=== PATIENT | female | born 1990 | race Caucasian/White ===

== ENCOUNTER 2020-07-28 07:30 | Inpatient (IN) ==
[2020-07-28] MEDS ORDERED: OXYTOCIN 30 UNITS/500 ML BAG IV PRN (09:28)
[2020-07-28] MEDS ORDERED: DINOPROSTONE 10 MG INSERT PV ONE (09:38)
[2020-07-28 09:57] LABS: Hematocrit (blood only) 30.6 % (37-47); Hemoglobin 9.9 g/dL (12.0-16.0); Mean Corpuscular Volume 86.7 fL (80-100); Mean Platelet Volume 10.6 fL (7.4-10.4); Platelet Count 153 K/uL (130-400); RDW Coefficient of Variation 13.3 % (11.5-14.5); RDW Standard Deviation 41.9 fL (36.4-46.3); Red Blood Count 3.53 M/uL (4.2-5.4); White Blood Count 4.67 K/uL (4.8-10.8)
[2020-07-28 10:09] LABS: Mean Corpuscular Hgb Conc 32.4 g/dL (32-36)
--- NOTE | 2020-07-28 10:20 | Obstetrical Progress Note ---
Date of Service July 28, 2020 Admit Note 29 F P0000 at 40 weeks admitted for induction of labor for GDM diet controlled. GBS is negative. Covid is negative. FHT Cat 1 with no contractions. Cervix is 1/50/-3/vertex/posterior. EFW 7-7.5 lbs. Cervidil 10 mg placed vaginally for ripening. Assessment & Plan Admission and Anticipated Discharge Date Admission Date: July 28, 2020 Results & Data ([facility]) Vital Signs (Past 12 Hours) Vital Signs Temp Pulse Resp BP 07/28/20 09:46 18 07/28/20 09:00 18 07/28/20 08:11 36.7 C 07/28/20 08:00 18 07/28/20 07:46 62 117/75 07/28/20 07:38 18
[2020-07-28] MEDS: LACTATED RINGER'S 1,000 ML IV PRN ×3 (16:01→23:45)
[2020-07-28] MEDS ORDERED: BUPIVACAINE 0.25% 30 ML VIAL ONE (17:46)
[2020-07-28] MEDS ORDERED: fentaNYL citrate 100 MCG/2 ML VIAL ONE (17:46)
[2020-07-28] MEDS ORDERED: ePHEDrine sulfate 50 MG/ML AMP ONE (17:46)
[2020-07-28] MEDS ORDERED: fentaNYL 2MCG/ML ROPIV 1.25MG/ML 100 ML BAG EPI ONE (17:47)
--- NOTE | 2020-07-28 17:53 | Obstetrical Progress Note ---
Date of Service July 28, 2020 Assessment & Plan Admission and Anticipated Discharge Date Admission Date: July 28, 2020 Physical Exam Genitourinary: OB Exam Abdomen: + vertex and + regular contractions Manual OB Exam: + cervical dilation 4 cm, + cervical effacement 80% and + station -2 OB Exam Monitor Tracing: + external FHT monitor used, + category I and + normal FHT variability patient requesting epidural Results & Data ([facility]) Vital Signs (Past 12 Hours) Vital Signs Temp Pulse Resp BP 07/28/20 17:30 18 07/28/20 16:51 58 L 138/63 07/28/20 15:56 37.1 C 18 07/28/20 15:27 62 116/62 07/28/20 15:26 18 07/28/20 14:41 18 07/28/20 13:56 61 127/75 07/28/20 13:55 18 07/28/20 13:23 18 07/28/20 12:54 60 121/73 07/28/20 12:52 18 07/28/20 11:53 18 07/28/20 11:11 73 117/65 07/28/20 10:57 68 121/77 07/28/20 10:42 81 113/75 07/28/20 10:26 74 126/80 07/28/20 10:00 18 07/28/20 09:46 18 07/28/20 09:00 18 07/28/20 08:11 36.7 C 07/28/20 08:00 18 07/28/20 07:50 36.7 C 07/28/20 07:46 62 117/75 07/28/20 07:38 18
--- NOTE | 2020-07-28 18:27 | Anesthesiology Consultation ---
Date of Service July 28, 2020 Assessment & Plan Chart Review Chart Review: Acceptable Risk for Labor Epidural Consults Requested none History Height/Weight Height: 5 ft 4 in Weight: 65.317 kg Allergies Allergy/AdvReac Type Severity Reaction Status Date / Time No Known Allergies Allergy Unverified 07/28/20 08:03 Medications Home Medications Medication Instructions Recorded Confirmed Last Taken prenat.vits,sallei,vvt-yili-vxjfr 1 tab PO DAILY 07/28/20 07/28/20 07/28/20 [ #2] valacyclovir [Valtrex] 500 mg PO DAILY 07/28/20 07/28/20 07/28/20 06:00 Active Medications Generic Name Dose Route Start Last Admin Trade Name Freq PRN Reason Stop Dose Admin Lactated Ringer's 1,000 mls @ 125 mls/hr 07/28/20 09:28 07/28/20 18:04 Lr IV 07/30/20 09:27 500 mls/hr .Q8H PRN Administration L&D Protocol Protocol Past Medical History Medical History Genital herpes Gestational diabetes Past Family History Family History (Updated 07/28/20 @ 07:58 by Katy Dixon) Father Prostate cancer Past Surgical History Surgical History No history of previous surgery Social History Smoking Status: Never smoker Do You Dip or Chew Tobacco: No Hx Alcohol Use: No Hx Substance Use: No Physical Exam Vital Signs Last Vital Signs Temp 37.1 C 07/28/20 15:56 Pulse 66 07/28/20 18:25 Resp 18 07/28/20 18:00 BP 111/64 07/28/20 18:23 Pulse Ox 100 07/28/20 18:25 Testing Laboratory Results 07/28/20 09:44 07/28/20 09:46 POC Glucose 127 H
[2020-07-28] MEDS ORDERED: ePHEDrine sulfate 50 MG/ML AMP IV PRN (18:29)
[2020-07-28] MEDS ORDERED: DiphenhydrAMINE HCL 50 MG/ML VIAL IV PRN (18:29)
[2020-07-28] MEDS ORDERED: NALOXONE HCL 1 MG in SODIUM CHLORIDE 0.9% 1000ML 1,000 ML IV PRN (18:29)
[2020-07-28] MEDS ORDERED: NALOXONE HCL 0.4 MG/1 ML VIAL/CARP IV PRN (18:29)
--- NOTE | 2020-07-28 19:36 | Obstetrical Progress Note ---
Date of Service July 28, 2020 Assessment & Plan Admission and Anticipated Discharge Date Admission Date: July 28, 2020 Physical Exam Genitourinary: OB Exam Abdomen: + regular contractions Manual OB Exam: + cervical dilation 4 cm, + cervical effacement 80% and + amniotic fluid clear OB Exam Monitor Tracing: + external FHT monitor used, + category I and + normal FHT variability AROM with Amni-hook clear fluid Results & Data ([facility]) Vital Signs (Past 12 Hours) Vital Signs Temp Pulse Resp BP Pulse Ox Pulse Ox 07/28/20 19:34 65 126/73 07/28/20 19:30 62 100 07/28/20 19:25 70 100 07/28/20 19:20 85 99 07/28/20 19:19 37.1 C 18 07/28/20 19:15 65 100 07/28/20 19:10 61 100 07/28/20 19:07 79 105/64 07/28/20 19:05 74 100 07/28/20 19:00 61 99 07/28/20 18:57 57 L 112/64 07/28/20 18:55 74 99 07/28/20 18:50 55 L 99 07/28/20 18:48 53 L 111/63 07/28/20 18:45 58 L 99 07/28/20 18:40 62 100 07/28/20 18:39 61 110/60 07/28/20 18:35 65 100 07/28/20 18:32 100 07/28/20 18:30 62 18 100 07/28/20 18:26 60 112/61 07/28/20 18:25 66 100 07/28/20 18:23 62 111/64 07/28/20 18:20 62 110/58 L 100 07/28/20 18:17 67 111/62 07/28/20 18:15 62 116/63 100 07/28/20 18:11 67 133/79 07/28/20 18:10 71 100 07/28/20 18:09 70 124/79 07/28/20 18:06 80 136/78 07/28/20 18:05 73 100 07/28/20 18:03 75 153/78 H 07/28/20 18:00 80 18 100 100 07/28/20 17:55 61 100 07/28/20 17:30 18 07/28/20 16:51 58 L 138/63 07/28/20 15:56 37.1 C 18 07/28/20 15:27 62 116/62 07/28/20 15:26 18 07/28/20 14:41 18 07/28/20 13:56 61 127/75 07/28/20 13:55 18 07/28/20 13:23 18 07/28/20 12:54 60 121/73 07/28/20 12:52 18 07/28/20 11:53 18 07/28/20 11:11 73 117/65 07/28/20 10:57 68 121/77 07/28/20 10:42 81 113/75 07/28/20 10:26 74 126/80 07/28/20 10:00 18 07/28/20 09:46 18 07/28/20 09:00 18 07/28/20 08:11 36.7 C 07/28/20 08:00 18 07/28/20 07:50 36.7 C 07/28/20 07:46 62 117/75 07/28/20 07:38 18
--- NOTE | 2020-07-28 23:01 | Obstetrical Progress Note ---
Date of Service July 28, 2020 Assessment & Plan Admission and Anticipated Discharge Date Admission Date: July 28, 2020 Physical Exam Genitourinary: Manual OB Exam: + cervical dilation 7 cm, + cervical effacement 90%, + station -1 and + amniotic fluid clear OB Exam Monitor Tracing: + external FHT monitor used, + external uterine monitor used, + category I and + normal FHT variability Results & Data ([facility]) Vital Signs (Past 12 Hours) Vital Signs Temp Pulse Resp BP Pulse Ox Pulse Ox 07/28/20 22:55 62 99 07/28/20 22:50 60 100 07/28/20 22:49 62 118/76 07/28/20 22:45 80 99 07/28/20 22:40 65 98 07/28/20 22:35 54 L 98 07/28/20 22:30 37.1 C 68 18 99 07/28/20 22:25 61 97 07/28/20 22:20 54 L 98 07/28/20 22:19 57 L 129/64 07/28/20 22:15 67 98 07/28/20 22:10 55 L 97 07/28/20 22:05 53 L 98 07/28/20 22:04 51 L 134/74 07/28/20 22:00 63 18 99 07/28/20 21:55 55 L 98 07/28/20 21:50 71 98 07/28/20 21:49 65 109/70 07/28/20 21:45 55 L 98 07/28/20 21:40 49 L 98 07/28/20 21:35 65 98 07/28/20 21:34 60 126/85 07/28/20 21:30 37.1 C 54 L 18 99 07/28/20 21:25 57 L 99 07/28/20 21:20 66 99 07/28/20 21:18 60 122/74 07/28/20 21:15 56 L 98 07/28/20 21:10 65 98 07/28/20 21:05 68 99 07/28/20 21:04 63 120/76 07/28/20 21:00 52 L 18 97 07/28/20 20:55 53 L 98 07/28/20 20:50 53 L 98 07/28/20 20:48 53 L 108/61 07/28/20 20:45 54 L 98 07/28/20 20:40 77 99 07/28/20 20:35 75 103/59 L 98 07/28/20 20:30 62 18 98 07/28/20 20:25 59 L 99 07/28/20 20:20 78 98 07/28/20 20:19 60 127/57 L 07/28/20 20:15 66 99 07/28/20 20:10 62 98 07/28/20 20:05 67 98 07/28/20 20:04 64 111/65 07/28/20 20:00 65 18 98 07/28/20 19:55 73 99 07/28/20 19:50 61 98 07/28/20 19:48 70 118/65 07/28/20 19:45 59 L 100 07/28/20 19:40 59 L 100 07/28/20 19:35 80 100 07/28/20 19:34 65 126/73 07/28/20 19:30 62 100 07/28/20 19:25 70 100 07/28/20 19:20 85 99 07/28/20 19:19 37.1 C 18 07/28/20 19:15 37.1 C 65 100 07/28/20 19:10 61 100 07/28/20 19:07 79 105/64 07/28/20 19:05 74 100 07/28/20 19:00 61 99 07/28/20 18:57 57 L 112/64 07/28/20 18:55 74 99 07/28/20 18:50 55 L 99 07/28/20 18:48 53 L 111/63 07/28/20 18:45 58 L 99 07/28/20 18:40 62 100 07/28/20 18:39 61 110/60 07/28/20 18:35 65 100 07/28/20 18:32 100 07/28/20 18:30 62 18 100 07/28/20 18:26 60 112/61 07/28/20 18:25 66 100 07/28/20 18:23 62 111/64 07/28/20 18:20 62 110/58 L 100 07/28/20 18:17 67 111/62 07/28/20 18:15 62 116/63 100 07/28/20 18:11 67 133/79 07/28/20 18:10 71 100 07/28/20 18:09 70 124/79 07/28/20 18:06 80 136/78 07/28/20 18:05 73 100 07/28/20 18:03 75 153/78 H 07/28/20 18:00 80 18 100 100 07/28/20 17:55 61 100 07/28/20 17:30 18 07/28/20 16:51 58 L 138/63 07/28/20 15:56 37.1 C 18 07/28/20 15:27 62 116/62 07/28/20 15:26 18 07/28/20 14:41 18 07/28/20 13:56 61 127/75 07/28/20 13:55 18 07/28/20 13:23 18 07/28/20 12:54 60 121/73 07/28/20 12:52 18 07/28/20 11:53 18 07/28/20 11:11 73 117/65
[2020-07-28] MEDS: fentaNYL 2MCG/ML ROPIV 1.25MG/ML 100 ML BAG EPI PRN (23:47)
[2020-07-29] MEDS: fentaNYL 2MCG/ML ROPIV 1.25MG/ML 100 ML BAG EPI PRN (02:22)
[2020-07-29] MEDS ORDERED: Nursing to Pharmacy Communication SCH (02:44)
--- NOTE | 2020-07-29 06:46 | Obstetrical Progress Note ---
Date of Service July 29, 2020 Assessment & Plan Admission and Anticipated Discharge Date Admission Date: July 28, 2020 Physical Exam Genitourinary: OB Exam Abdomen: + regular contractions Manual OB Exam: + cervical dilation 10 cm, + cervical effacement, + station + 1 and + amniotic fluid OB Exam Monitor Tracing: + external FHT monitor used, + external uterine monitor used and + category I will start to push Results & Data ([facility]) Vital Signs (Past 12 Hours) Vital Signs Temp Pulse Resp BP Pulse Ox 07/29/20 06:40 61 98 07/29/20 06:35 62 98 07/29/20 06:34 62 104/59 L 07/29/20 06:30 73 18 98 07/29/20 06:25 64 98 07/29/20 06:20 59 L 99 07/29/20 06:18 61 105/56 L 07/29/20 06:15 58 L 99 07/29/20 06:10 59 L 100 07/29/20 06:05 61 100 07/29/20 06:03 62 103/60 07/29/20 06:00 60 18 100 07/29/20 05:55 68 99 07/29/20 05:50 73 97 07/29/20 05:49 61 112/73 07/29/20 05:45 86 97 07/29/20 05:40 70 98 07/29/20 05:35 74 98 07/29/20 05:34 72 114/75 07/29/20 05:30 37.1 C 65 18 98 07/29/20 05:25 74 98 07/29/20 05:20 62 98 07/29/20 05:18 73 112/73 07/29/20 05:15 63 98 07/29/20 05:10 69 97 07/29/20 05:05 68 98 07/29/20 05:04 69 111/71 07/29/20 05:00 70 18 98 07/29/20 04:55 62 98 07/29/20 04:50 64 97 07/29/20 04:49 61 120/77 07/29/20 04:45 74 97 07/29/20 04:40 69 98 07/29/20 04:35 68 98 07/29/20 04:34 63 110/68 07/29/20 04:30 70 18 97 07/29/20 04:25 64 98 07/29/20 04:20 63 98 07/29/20 04:19 58 L 109/68 07/29/20 04:15 62 98 07/29/20 04:10 62 98 07/29/20 04:05 63 98 07/29/20 04:04 57 L 108/69 07/29/20 04:00 66 18 98 07/29/20 03:55 61 99 07/29/20 03:52 37.1 C 07/29/20 03:50 69 95 07/29/20 03:49 87 122/83 07/29/20 03:48 78 91 07/29/20 03:45 76 100 07/29/20 03:40 97 H 100 07/29/20 03:35 67 98 07/29/20 03:34 61 98/54 L 07/29/20 03:30 68 98 07/29/20 03:25 61 98 07/29/20 03:20 73 98 07/29/20 03:19 59 L 101/59 L 07/29/20 03:15 56 L 100 07/29/20 03:10 51 L 99 07/29/20 03:05 53 L 101/56 L 99 07/29/20 03:00 51 L 99 07/29/20 02:55 53 L 100 07/29/20 02:51 51 L 109/56 L 07/29/20 02:50 51 L 100 07/29/20 02:45 64 100 07/29/20 02:40 70 100 07/29/20 02:35 63 100 07/29/20 02:34 56 L 111/61 07/29/20 02:30 64 18 100 07/29/20 02:25 71 100 07/29/20 02:20 82 100 07/29/20 02:19 88 124/80 07/29/20 02:15 86 99 07/29/20 02:10 70 98 07/29/20 02:05 58 L 113/69 97 07/29/20 02:00 37.1 C 59 L 18 98 07/29/20 01:55 61 97 07/29/20 01:50 60 98 07/29/20 01:48 59 L 124/75 07/29/20 01:45 61 97 07/29/20 01:40 61 98 07/29/20 01:35 54 L 98 07/29/20 01:33 62 116/73 07/29/20 01:30 58 L 18 97 07/29/20 01:25 69 98 07/29/20 01:20 66 98 07/29/20 01:19 55 L 111/70 07/29/20 01:15 51 L 97 07/29/20 01:10 54 L 97 07/29/20 01:05 54 L 97 07/29/20 01:04 52 L 113/68 07/29/20 01:00 58 L 18 98 07/29/20 00:55 52 L 98 07/29/20 00:50 55 L 98 07/29/20 00:49 51 L 115/70 07/29/20 00:45 71 100 07/29/20 00:40 73 100 07/29/20 00:35 66 116/75 100 07/29/20 00:30 37.1 C 49 L 18 98 07/29/20 00:25 61 98 07/29/20 00:20 55 L 99 07/29/20 00:19 49 L 118/67 07/29/20 00:15 56 L 99 07/29/20 00:10 50 L 98 07/29/20 00:05 55 L 98 07/29/20 00:04 53 L 110/60 07/29/20 00:00 54 L 18 98 07/28/20 23:55 52 L 99 07/28/20 23:50 61 127/78 100 07/28/20 23:45 62 98 07/28/20 23:40 55 L 97 07/28/20 23:35 54 L 98 07/28/20 23:34 55 L 123/75 07/28/20 23:30 37.1 C 63 18 97 07/28/20 23:25 53 L 97 07/28/20 23:20 54 L 98 07/28/20 23:18 52 L 114/64 07/28/20 23:15 63 98 07/28/20 23:10 51 L 98 07/28/20 23:05 71 98 07/28/20 23:03 55 L 118/63 07/28/20 23:00 56 L 18 99 07/28/20 22:55 62 99 07/28/20 22:50 60 100 07/28/20 22:49 62 118/76 07/28/20 22:45 80 99 07/28/20 22:40 65 98 07/28/20 22:35 54 L 98 07/28/20 22:30 37.1 C 68 18 99 07/28/20 22:25 61 97 07/28/20 22:20 54 L 98 07/28/20 22:19 57 L 129/64 07/28/20 22:15 67 98 07/28/20 22:10 55 L 97 07/28/20 22:05 53 L 98 07/28/20 22:04 51 L 134/74 07/28/20 22:00 63 18 99 07/28/20 21:55 55 L 98 07/28/20 21:50 71 98 07/28/20 21:49 65 109/70 07/28/20 21:45 55 L 98 07/28/20 21:40 49 L 98 07/28/20 21:35 65 98 07/28/20 21:34 60 126/85 07/28/20 21:30 37.1 C 54 L 18 99 07/28/20 21:25 57 L 99 07/28/20 21:20 66 99 07/28/20 21:18 60 122/74 07/28/20 21:15 56 L 98 07/28/20 21:10 65 98 07/28/20 21:05 68 99 07/28/20 21:04 63 120/76 07/28/20 21:00 52 L 18 97 07/28/20 20:55 53 L 98 07/28/20 20:50 53 L 98 07/28/20 20:48 53 L 108/61 07/28/20 20:45 54 L 98 07/28/20 20:40 77 99 07/28/20 20:35 75 103/59 L 98 07/28/20 20:30 62 18 98 07/28/20 20:25 59 L 99 07/28/20 20:20 78 98 07/28/20 20:19 60 127/57 L 07/28/20 20:15 66 99 07/28/20 20:10 62 98 07/28/20 20:05 67 98 07/28/20 20:04 64 111/65 07/28/20 20:00 65 18 98 10/06/20 19:55 73 99 07/28/20 19:50 61 98 07/28/20 19:48 70 118/65 07/28/20 19:45 59 L 100 07/28/20 19:40 59 L 100 07/28/20 19:35 80 100 07/28/20 19:34 65 126/73 07/28/20 19:30 62 100 07/28/20 19:25 70 100 07/28/20 19:20 85 99 07/28/20 19:19 37.1 C 18 07/28/20 19:15 37.1 C 65 100 07/28/20 19:10 61 100 07/28/20 19:07 79 105/64 07/28/20 19:05 74 100 07/28/20 19:00 61 99 07/28/20 18:57 57 L 112/64 07/28/20 18:55 74 99 07/28/20 18:50 55 L 99 07/28/20 18:48 53 L 111/63
[2020-07-29] MEDS: LACTATED RINGER'S 1,000 ML IV PRN (07:51)
--- NOTE | 2020-07-29 09:46 | Delivery Summary ---
Vaginal Delivery Summary Date of Service July 29, 2020 Vaginal Delivery Summary Delivery Note live male over intact perineum RENE with Apgars 8/9 weight pending. Cord blood obtained followed by spontaneous delivery of intact placenta. No tears. EBL 200 ml. Final sponge and instrument count are correct. Mom and baby stable.
[2020-07-29] MEDS ORDERED: OXYTOCIN 30 UNITS/500 ML BAG IV PRN ×2 (09:47→10:18)
[2020-07-29] MEDS ORDERED: HYDROCORTISONE ACETATE 25 MG SUPP PR PRN ×2 (09:47→10:18)
[2020-07-29] MEDS ORDERED: bisacodyL 10 MG SUPP PR PRN ×2 (09:47→10:18)
[2020-07-29] MEDS ORDERED: ACETAMINOPHEN 325 MG TAB PO PRN ×2 (09:47→10:18)
[2020-07-29] MEDS ORDERED: BENZOCAINE 20% AER SPR 82.5 GM CAN EXT PRN ×2 (09:47→10:18)
[2020-07-29] MEDS ORDERED: SUPERCREAM 0.870% 15 GM JAR EXT PRN ×2 (09:47→10:18)
[2020-07-29] MEDS ORDERED: DIPHTHERIA/TETANUS/PERTUSSIS 0.5 ML SYR/VIAL IM ONE (10:18)
[2020-07-29] MEDS ORDERED: LACTATED RINGER'S 1,000 ML IV SCH (10:18)
[2020-07-29] MEDS ORDERED: VARICELLA VIRUS VACCINE LIVE VIAL SQ ONE (10:18)
[2020-07-29] MEDS ORDERED: IBUPROFEN 600 MG TAB PO PRN (10:18)
--- NOTE | 2020-07-29 11:46 | Anesthesia Procedure Note ---
Date of Service July 29, 2020 Anesthesia Post Epidural Note Vital Signs Vital Signs: Temp Pulse Resp BP Pulse Ox 37.1 C 80 18 107/64 98 07/29/20 09:45 07/29/20 11:33 07/29/20 11:00 07/29/20 11:33 07/29/20 09:30 Pain Intensity Lower Back: Pain Intensity: 0 Notes Mental Status: alert / awake / arousable and participated in evaluation Patient Amnestic to Procedure: Yes Nausea / Vomiting: adequately controlled Pain: adequately controlled Airway Patency, RR, SpO2: stable & adequate BP & HR: stable & adequate Hydration State: stable & adequate Anesthetic Complications: no major complications apparent and Pt Satisfied with anesthetic care
[2020-07-29 11:58] LABS: Hematocrit (blood only) 31.4 % (37-47); Hemoglobin 10.1 g/dL (12.0-16.0)
[2020-07-29 12:28] LABS: Alanine Aminotransferase 23 U/L (12-78); Albumin Level 2.1 gm/dl (3.4-5.0); Alkaline Phosphatase 142 U/L (45-117); Aspartate Aminotransferase 43 U/L (15-37); Bilirubin Direct < 0.1 mg/dl (0-0.2); Bilirubin,Total 0.4 mg/dl (0.2-1); Total Protein 5.5 gm/dl (6.4-8.2)
[2020-07-29] MEDS: DOCUSATE SODIUM 100 MG CAP PO SCH (20:12)
[2020-07-29] MEDS ORDERED: DOCUSATE SODIUM 100 MG CAP PO SCH (21:00)
[2020-07-29] MEDS: IBUPROFEN 600 MG TAB PO PRN (23:43)
[2020-07-30 06:42] LABS: Hematocrit (blood only) 27.8 % (37-47); Mean Corpuscular Hemoglobin 28.3 pg (25-34); Mean Corpuscular Hgb Conc 32.4 g/dL (32-36); Mean Corpuscular Volume 87.4 fL (80-100); Platelet Count 170 K/uL (130-400); RDW Coefficient of Variation 13.6 % (11.5-14.5); RDW Standard Deviation 43.3 fL (36.4-46.3); Red Blood Count 3.18 M/uL (4.2-5.4); White Blood Count 12.91 K/uL (4.8-10.8)
[2020-07-30] MEDS ORDERED: PRENATAL VITAMIN 1 TAB PO SCH (08:00)
[2020-07-30] MEDS ORDERED: DIPHTHERIA/TETANUS/PERTUSSIS 0.5 ML SYR/VIAL IM ONE (09:00)
[2020-07-30] MEDS ORDERED: NON-FORMULARY MEDICATION (Prenat.Vits,Cal,Min-Iron-Folic 1 TAB) PO SCH (09:00)
[2020-07-30] MEDS: FERROUS SULFATE 325 MG TAB PO SCH (09:20)
[2020-07-30] MEDS: DOCUSATE SODIUM 100 MG CAP PO SCH ×2 (09:20→20:23)
[2020-07-30] MEDS: IBUPROFEN 600 MG TAB PO PRN ×2 (09:21→20:23)
[2020-07-30] MEDS: PRENATAL VITAMIN 1 TAB PO SCH (09:21)
--- NOTE | 2020-07-30 10:12 | Obstetrical Progress Note ---
Date of Service July 30, 2020 Assessment & Plan Admission and Anticipated Discharge Date Admission Date: July 28, 2020 Review of Systems Review of Systems: All systems reviewed & are unremarkable except as noted in HPI & below Physical Exam Constitutional: WD/WN, vitals as above well developed and well nourished Eyes: PERRL, conjunctivae normal, anicteric sclerae Neck: trachea midline, no thyromegaly Respiratory: normal respiratory effort, lungs clear to auscultation Auscultation: no crackles, no rales and no wheezes Cardiovascular: RRR, no murmur, no edema Gastrointestinal (Abdomen): normal bowel sounds, soft, nontender, no hepatosplenomegaly Uterus is below umbilicus Musculoskeletal: no cyanosis or clubbing, extremities motor strength 5/5 Skin: no rashes, warm and dry Neurologic: patellar DTR's 2+ bilat, sensation intact Psychiatric: A+Ox3, euthymic affect Genitourinary: normal external appearance Results & Data ([facility]) Vital Signs (Past 12 Hours) Vital Signs Temp Pulse Pulse Resp BP 07/30/20 03:05 36.5 C 60 18 113/70 07/29/20 23:40 36.6 C 67 18 123/79
--- NOTE | 2020-07-30 10:14 | Obstetrical Progress Note ---
Date of Service July 30, 2020 Assessment & Plan (1) Normal course: PPD #1 Pt doing well anticipate disch tomorrow Subjective Ambulation: ambulating normally Voiding: no voiding problems Passing Gas:: Yes Diet Tolerance:: regular diet Lochia:: Small Feeding Type:: breast feeding Review of Systems All systems reviewed & are unremarkable except as noted in HPI & below Physical Exam Constitutional WD/WN, vitals as above well developed and well nourished Eyes PERRL, conjunctivae normal, anicteric sclerae Neck trachea midline, no thyromegaly Respiratory normal respiratory effort, lungs clear to auscultation Auscultation: no crackles, no rales and no wheezes Cardiovascular RRR, no murmur, no edema Gastrointestinal (Abdomen) normal bowel sounds, soft, nontender, no hepatosplenomegaly Uterus is below umbilicus Musculoskeletal no cyanosis or clubbing, extremities motor strength 5/5 Skin no rashes, warm and dry Neurologic patellar DTR's 2+ bilat, sensation intact Psychiatric A+Ox3, euthymic affect Genitourinary normal external appearance Results & Data ([facility]) Vital Signs (Past 12 Hours) Vital Signs Temp Pulse Pulse Resp BP 07/30/20 03:05 36.5 C 60 18 113/70 07/29/20 23:40 36.6 C 67 18 123/79
[2020-07-30] MEDS ORDERED: bisacodyL 5 MG TABEC PO SCH ×2 (20:00)
[2020-07-31 06:57] LABS: Hematocrit (blood only) 25.6 % (37-47); Hemoglobin 8.5 g/dL (12.0-16.0)
[2020-07-31] MEDS: PRENATAL VITAMIN 1 TAB PO SCH (09:24)
[2020-07-31] MEDS: DOCUSATE SODIUM 100 MG CAP PO SCH (09:25)
[2020-07-31] MEDS: FERROUS SULFATE 325 MG TAB PO SCH (09:25)
[2020-07-31] MEDS: IBUPROFEN 600 MG TAB PO PRN ×2 (09:25→18:58)
--- NOTE | 2020-07-31 09:35 | Obstetrical Progress Note ---
Date of Service July 31, 2020 Assessment & Plan Admission and Anticipated Discharge Date Admission Date: July 28, 2020 Subjective PPD#2 doing well passing gas positive BM tolerating diet ambulating well Physical Exam Constitutional: WD/WN, vitals as above comfortable abdomen soft and non- tender some edema +1 noted on lower extremities neg Rudy's for d/c today Results & Data ([facility]) Vital Signs (Past 12 Hours) Vital Signs Temp Pulse Resp BP 07/30/20 23:30 36.5 C 65 18 121/76 Laboratory Results Laboratory Results - last 72 hr 07/28/20 07/28/20 07/29/20 09:44 09:46 11:46 WBC 4.67 L RBC 3.53 L Hgb 9.9 L 10.1 L Hct 30.6 L 31.4 L MCV 86.7 MCH 28.0 MCHC 32.4 RDW Std Deviation 41.9 RDW Coeff of Elijah 13.3 Plt Count 153 MPV 10.6 H POC Glucose 127 H Total Bilirubin Direct Bilirubin AST ALT Alkaline Phosphatase Total Protein Albumin 07/29/20 07/30/20 07/31/20 11:46 06:13 06:01 WBC 12.91 H RBC 3.18 L Hgb 9.0 L 8.5 L Hct 27.8 L 25.6 L MCV 87.4 MCH 28.3 MCHC 32.4 RDW Std Deviation 43.3 RDW Coeff of Elijah 13.6 Plt Count 170 MPV 11.0 H POC Glucose Total Bilirubin 0.4 Direct Bilirubin < 0.1 AST 43 H ALT 23 Alkaline Phosphatase 142 H Total Protein 5.5 L Albumin 2.1 L
== END 2020-07-31 19:06 | disposition home or self-care (01) | DRG 807 ==
LOC: EDBD 07:30 → 4S1 07:30 → 4S2 07-29 12:55